=== PATIENT | female | born 1985 | race Caucasian/White ===

== ENCOUNTER 2016-04-25 11:42 | Inpatient (IN) | payer OTHER ==
[~2016-04-25] VITALS: Ht 167.6 cm; Wt 87.5 kg
[~2016-04-25 11:42] MED LIST: ACETAMINOP160 MG/51 GT; ADULT MUCU100 MG/5 M GT; ALBUTEROL SULFATE IH; ARTIFICIAL TEAR15 M4 BOTH EYES; ARTIFICIAL TEARS BOTH EYES; ATARAX2 MG/ML GT; Ascorbic Acid,Ester- PO; Atarax GT; Atarax,Vistaril GT; Augmentin GT; BISOPROLOL FUMAR5 M1 GT; CARAFATE100 MG/ML GT; CARDIZEM SR60 MG GT; CARDIZEM30 MG G; CARDIZEM60 MG GT; CARDIZEM90 M1 GT; CARDIZEM90 M1 PO; CIPRO750 MG GT; COLISTIN; Carafate GT; DELTASONE10 MG GT; DELTASONE20 MG GT; DEPAKENE250 MG/5 M G-TUBE; DEPAKENE250 MG/5 M GT; DULCOLAX10 MG PR; DUONEB 2.5-0.5 M3 ML IH; DUONEB3 ML IH; Depakene GT; Diflucan GT; Dulcolax PR; ENEMA READY TO135 M1 PR; FAMOTIDINE20 MG GT; FLAGYL500 MG GT; FLEET ENEMA-AD118 ML PR; FLEET MINERAL133 ML PR; FLORANEX CHE1 TABLET G; FLORANEX CHE1 TABLET GT; GLUCAGEN1 MG IM/SC; HEPARIN SO5000 UNIT1 SC; HYDROXYZINE HCL25 M1 GT; HYDROXYZINE HCL50 MG GT; Heparin Sodium SQ; IPRATROPIU0.2 MG/1 M IH; LASIX20 MG GT; LOVENOX40 MG/0.4 SC; Lotrimin Cream TP; Lovenox SC; MILK OF MAG GT; MILK OF MAGN PO; MUCOMYST 20200 MG/ML PO; MULTIVITAMIN GT; MULTIVITAMIN1 EAC2 GT; Maxipime IV; Milk Of Magnesia,MOM G; Milk Of Magnesia,MOM GT; Mucomyst,Mucosol 20% IH; Mycostatin,Nystop Po TP; NEBCIN40 MG/ML IV; NOVOLOG PE100 UNITS/ SC; PAIN RELIE500 MG/15 GT; PHILLIPS'400 MG/5 M PO; POTASSIUM20 MEQ/11; POTASSIUM20 MEQ/11 GT; PREDNISONE1 MG/ML GT; PREDNISONE10 M2 G-TUBE; PREVACID SOLUTA30 M1 GT; PRILOSEC20 MG GT; PROVENTIL,2.5 MG/0.5 IH; PROVENTIL,2.5 MG/3 M IH; PULMICORT0.5 MG/21 IH; PULMOCARE1000 ML GT; Peridex PO; PriLOSEC G; Prilosec PO; Proventil,Ventolin 0 IH; Robitussin, Organidi G; Robitussin, Organidi GT; SINGULAIR10 MG GT; Silvadene,SSD,Therma TP; Singulair GT; THEOPHYLLI80 MG/15 M GT; THERAGRAN1 TABLET PO; TUSSIN100 MG/5 M GT; TYGACIL50 MG IV; TYLENOL; TYLENOL650 MG GT; TYLENOL650 MG/20. GT; Tears Renewed,Artifi BOTH EYES; Tylenol Arthritis Ex GT; Tylenol G; Tylenol GT; Tylenol PR; VALPROIC A250 MG/5 M G-TUBE; VALPROIC A250 MG/5 M GT; VENTOLIN5 MG/1 ML IH; VITAMIN C + RO500 MG GT; VITAMIN C100 MG/1 M GT; VITAMIN C500 M2 GT; Vancocin Oral Soluti GT; ZINC SULFATE220 M1 GT; ZINC SULFATE220 MG GT; Zebeta GT; Zinc Sulfate GT; [UNRECOGNIZED DRUG - REMARK] IV; predniSONE GT; predniSONE PO
[2016-04-25 12:39] LABS: BASOPHIL COUNT 0.1 K/uL (0-0.1); EOSINOPHIL (%) 0.1 % (0-5); HEMATOCRIT 45.4 % (36.0-46.0); IMMATURE GRANULOCYTE (%) 0.6 % (0.0-0.7); IMMATURE GRANULOCYTE COUNT 1.7 K/uL; LYMPHOCYTE COUNT 1.4 K/uL (1.0-2.8); MCH 31.7 PG (29.0-34.0); MCHC 33.3 G/DL (30.0-36.0); MCV 95.4 FL (83-99); MONOCYTE (%) 11.1 % (3-12); MONOCYTE COUNT 3.4 K/uL (0-0.8); NEUTROPHIL (%) 83.5 % (45-76); NEUTROPHIL COUNT 25.7 K/uL (1.8-6.4); PLATELET COUNT 403 K/uL (156-360); RBC DIS.WIDTH-SD 46.1 % (39-53); RED BLOOD COUNT 4.76 M/uL (3.80-5.20); WHITE BLOOD COUNT 30.8 K/uL (4.1-10.2)
[2016-04-25 13:34] LABS: HEMATOLOGY COMMENT 1 SMEAR COMPATIBLE; USER ID CL
[2016-04-25 13:44] LABS: BASE EXCESS -2.9 mEq/L (-3 to +3); BICARBONATE 22.6 mEq/L (22-26); CARBOXY HGB 2.1 % (0-5); METHEMOGLOBIN 1.3 % (0-1.5); PO2 97 mm Hg (80-100); pH 7.35 (7.35-7.45)
[2016-04-25 13:45] LABS: COMMENTS - BLOOD GASES A+C+; DEVICE TP; FI02 100 %; PCO2 41 mm Hg (35-45); SITE RP; TOTAL RESP RATE 35 resp/min
[2016-04-25 13:49] LABS: O2 FLOW 10 L/MIN
[2016-04-25 14:15] LABS: CHLORIDE 108 mEq/L (99-109); POTASSIUM 4.7 mEq/L (3.7-5.4)
[2016-04-25 14:16] LABS: SODIUM 138 mEq/L (136-147)
[2016-04-25 14:17] LABS: GLUCOSE 123 mg/dL (70-99); INTER. NORMALIZED RATIO 1.1; PROTHROMBIN TIME 10.9 (9.2-11.2)
[2016-04-25 14:19] LABS: ANION GAP 13 MEQ/L (2-14)
[2016-04-25 14:21] LABS: GFR ESTIMATE (CALCULATED) > 59 mL/min/
[2016-04-25 14:22] LABS: UREA NITROGEN (BUN) 12 mg/dL (9-23)
[2016-04-25] MEDS ORDERED: LASIX20 MG GT (15:03)
[2016-04-25] MEDS ORDERED: DEPAKENE250 MG/5 M GT (15:06)
[2016-04-25] MEDS ORDERED: FLEET MINERAL133 ML PR (15:10)
[2016-04-25] MEDS ORDERED: MILK OF MAGN PO (15:11)
[2016-04-25 21:00] VITALS: BP 113/56
[2016-04-25 23:17] LABS: METH RESISTANT S AUREUS PCR NEGATIVE (NEGATIVE)
[2016-04-25 23:18] LABS: PROBE CHECK PASS; SPECIMEN PROCESSING CONTROL PASS
[2016-04-25 23:54] LABS: INFLUENZA A VIRAL ANTIGEN NEGATIVE; INFLUENZA B VIRAL ANTIGEN NEGATIVE
[2016-04-25 23:55] VITALS: BP 105/62
[2016-04-26 04:00] VITALS: BP 115/56
[2016-04-26 07:36] VITALS: BP 101/50
[2016-04-26 08:11] LABS: ANION GAP 8 MEQ/L (2-14); CHLORIDE 111 MEQ/L (99-109); EOSINOPHIL (%) 0 % (0-5); GFR ESTIMATE (CALCULATED) > 59 mL/min/; GLUCOSE 175 mg/dL (70-99); HEMATOCRIT 35.8 % (36.0-46.0); IMMATURE GRANULOCYTE (%) 0.4 % (0.0-0.7); LYMPHOCYTE COUNT 0.7 K/uL (1.0-2.8); MCHC 31.8 G/DL (30.0-36.0); MCV 97.3 FL (83-99); MEAN PLAT.VOLUME 10.5 uM^3 (9.5-12.4); MONOCYTE (%) 1.1 % (3-12); MONOCYTE COUNT 0.1 K/uL (0-0.8); NEUTROPHIL (%) 90.4 % (45-76); NEUTROPHIL COUNT 7.5 K/uL (1.8-6.4); POTASSIUM 4.4 MEQ/L (3.7-5.4); RBC DIS.WIDTH-CV 13.9 % (11.8-14.6); RBC DIS.WIDTH-SD 49.5 % (39-53); SAMPLE HEMOLYSIS CHECK 0; SAMPLE ICTERIC CHECK 0; SAMPLE LIPEMIA CHECK 0; SODIUM 141 MEQ/L (136-147); UREA NITROGEN (BUN) 10 mg/dL (9-23)
[2016-04-26 08:12] LABS: PLATELET COUNT 193 K/uL (156-360); RED BLOOD COUNT 3.68 M/uL (3.80-5.20); WHITE BLOOD COUNT 8.2 K/uL (4.1-10.2)
[2016-04-26 09:13] LABS: PLAT.SUFFICIENCY ADEQUATE; USER ID MCB
[2016-04-26 11:29] VITALS: BP 100/59
[2016-04-26 15:48] VITALS: BP 121/66
[2016-04-26 20:13] VITALS: BP 121/59
[2016-04-27] VITALS: BP 104/62
[2016-04-27 04:22] VITALS: BP 113/64
[2016-04-27 12:04] VITALS: BP 113/77
[2016-04-27 16:12] VITALS: BP 133/72
[2016-04-27 19:10] VITALS: BP 135/80
[2016-04-28] VITALS (7 sets, daily range): BP systolic 110–152; BP diastolic 53–70
[2016-04-29 04:46] VITALS: BP 109/58
[2016-04-29 08:11] VITALS: BP 120/60
[2016-04-29 11:25] VITALS: BP 114/71
[2016-04-29 16:01] VITALS: BP 117/69
[2016-04-29 19:00] VITALS: BP 119/69
[2016-04-29 23:40] VITALS: BP 122/62
[2016-04-30 01:12] LABS: CHLORIDE 103 mEq/L (99-109); POTASSIUM 3.9 mEq/L (3.7-5.4); SODIUM 142 mEq/L (136-147)
[2016-04-30 01:14] LABS: GLUCOSE 127 mg/dL (70-99)
[2016-04-30 01:15] LABS: ANION GAP 9 MEQ/L (2-14)
[2016-04-30 01:17] LABS: GFR ESTIMATE (CALCULATED) > 59 mL/min/
[2016-04-30 01:18] LABS: UREA NITROGEN (BUN) 16 mg/dL (9-23)
[2016-04-30 03:15] VITALS: BP 109/69
[2016-04-30 07:30] VITALS: BP 108/71
[2016-04-30 11:42] VITALS: BP 114/63
[2016-04-30 14:56] VITALS: BP 118/64
[2016-04-30 19:03] VITALS: BP 104/62
[2016-05-01] VITALS (7 sets, daily range): BP systolic 05–120; BP diastolic 55–74
[2016-05-02 04:15] VITALS: BP 108/79
[2016-05-02 07:50] VITALS: BP 110/63
[2016-05-02 11:33] VITALS: BP 100/69
[2016-05-02 15:44] VITALS: BP 107/56
[2016-05-02 15:53] LABS: GFR ESTIMATE (CALCULATED) > 59 mL/min/; UREA NITROGEN (BUN) 19 mg/dL (9-23)
[2016-05-02 19:25] VITALS: BP 107/75
[2016-05-03 00:15] VITALS: BP 116/70
[2016-05-03 03:15] VITALS: BP 112/69
[2016-05-03 07:19] LABS: EOSINOPHIL COUNT 0.2 K/uL (0-0.3); HEMATOCRIT 39.7 % (36.0-46.0); IMMATURE GRANULOCYTE COUNT 0.1 K/uL; LYMPHOCYTE COUNT 3.3 K/uL (1.0-2.8); MCH 31.3 PG (29.0-34.0); MCHC 31.7 G/DL (30.0-36.0); MCV 98.5 FL (83-99); MEAN PLAT.VOLUME 10.7 uM^3 (9.5-12.4); NEUTROPHIL (%) 58.3 % (45-76); NEUTROPHIL COUNT 6.6 K/uL (1.8-6.4); PLATELET COUNT 226 K/uL (156-360); RBC DIS.WIDTH-CV 14.1 % (11.8-14.6); RBC DIS.WIDTH-SD 50.5 % (39-53); RED BLOOD COUNT 4.03 M/uL (3.80-5.20)
[2016-05-03 07:25] LABS: WHITE BLOOD COUNT 11.2 K/uL (4.1-10.2)
[2016-05-03 07:26] VITALS: BP 122/64
[2016-05-03 07:27] LABS: ANION GAP 8 MEQ/L (2-14); CHLORIDE 101 MEQ/L (99-109); GFR ESTIMATE (CALCULATED) > 59 mL/min/; GLUCOSE 100 mg/dL (70-99); POTASSIUM 3.9 MEQ/L (3.7-5.4); SAMPLE HEMOLYSIS CHECK 0; SAMPLE ICTERIC CHECK 0; SAMPLE LIPEMIA CHECK 0; SODIUM 139 MEQ/L (136-147); UREA NITROGEN (BUN) 23 mg/dL (9-23)
[2016-05-03 11:45] VITALS: BP 108/58
[2016-05-03 16:17] VITALS: BP 114/66
[2016-05-03 23:49] VITALS: BP 108/62
[2016-05-04 07:25] VITALS: BP 115/68
[2016-05-04] MEDS ORDERED: PREDNISONE1 MG/ML GT (12:54)
[2016-05-04] MEDS ORDERED: Tums,OsCal GT (12:54)
[2016-05-04] MEDS ORDERED: MULTI-DELYN473 M1 GT (12:54)
[2016-05-04] MEDS ORDERED: DUONEB 2.5-0.5 M3 ML IPPB (12:55)
== END 2016-05-04 17:44 | DRG 871 ==
LOC: EME 11:42 → 4EAST 15:31 → EDOF 15:31 → 4EAST 21:07 → 2EAST 05-02 17:09
PROVIDERS: Emergency Medicine; Family Medicine Sports Medicine
DX: A41.9 Sepsis, unspecified organism (principal); J18.9 Pneumonia, unspecified organism; J96.20 Acute and chronic respiratory failure, unspecified whether with hypoxia or hypercapnia; G93.1 Anoxic brain damage, not elsewhere classified; G82.20 Paraplegia, unspecified; R40.3 Persistent vegetative state; J98.11 Atelectasis; Z93.0 Tracheostomy status; J45.909 Unspecified asthma, uncomplicated; G40.909 Epilepsy, unspecified, not intractable, without status epilepticus; Z66 Do not resuscitate; Z51.5 Encounter for palliative care; Y95 Nosocomial condition; Z22.39 Carrier of other specified bacterial diseases; Z93.1 Gastrostomy status; Z74.01 Bed confinement status
CPT/HCPCS: 36600; 71010; 76604; 80048; 80069; 80170; 80202; 81003; 82306; 82565; 82803; 83605; 84520; 85025; 85610; 87040; 87070; 87077; 87186; 87205; 87449; 87502; 87641; 93005; 94640; 94640 76; 94667; 94668; 94760; 94799; 99202; 99281; 99285; J1580; J1956; J2543; J2920; J3370; J7030; J7050; J7120; J7512

== ENCOUNTER 2016-05-24 12:07 | Inpatient (IN) | payer OTHER ==
[~2016-05-24] VITALS: Ht 165.1 cm; Wt 75.3 kg
[2016-05-24] VITALS (9 sets, daily range): BP systolic 82–117; BP diastolic 55–92
[~2016-05-24 12:07] MED LIST changes: +DUONEB 2.5-0.5 M3 ML IPPB; +MULTI-DELYN473 M1 GT; +Tums,OsCal GT
[2016-05-24 12:44] LABS: BASOPHIL COUNT 0.1 K/uL (0-0.1); EOSINOPHIL (%) 0.8 % (0-5); EOSINOPHIL COUNT 0.2 K/uL (0-0.3); HEMATOCRIT 47.6 % (36.0-46.0); IMMATURE GRANULOCYTE (%) 1.6 % (0.0-0.7); IMMATURE GRANULOCYTE COUNT 4.4 K/uL; LYMPHOCYTE COUNT 7.5 K/uL (1.0-2.8); MCH 31.2 PG (29.0-34.0); MCHC 32.8 G/DL (30.0-36.0); MCV 95.2 FL (83-99); MEAN PLAT.VOLUME 10.3 uM^3 (9.5-12.4); MONOCYTE (%) 4.3 % (3-12); MONOCYTE COUNT 1.2 K/uL (0-0.8); NEUTROPHIL (%) 65.4 % (45-76); NEUTROPHIL COUNT 17.7 K/uL (1.8-6.4); RBC DIS.WIDTH-SD 45.7 % (39-53)
[2016-05-24 12:45] LABS: PLATELET COUNT 385 K/uL (156-360); WHITE BLOOD COUNT 27.1 K/uL (4.1-10.2)
[2016-05-24 12:49] LABS: CHLORIDE 99 mEq/L (99-109); SODIUM 138 mEq/L (136-147)
[2016-05-24 12:52] LABS: PROTHROMBIN TIME 10.5 (9.2-11.2); PTT 22.3 (25-32)
[2016-05-24 12:52] LABS: GLUCOSE 292 mg/dL (70-99); POTASSIUM 5.4 mEq/L (3.7-5.4)
[2016-05-24 12:53] LABS: ANION GAP 18 MEQ/L (2-14); TOTAL BILIRUBIN 0.5 mg/dL (0.0-1.0)
[2016-05-24 12:55] LABS: ALKALINE PHOSPHATASE 103 IU/L (3-129); GFR ESTIMATE (CALCULATED) > 59 mL/min/
[2016-05-24 12:56] LABS: UREA NITROGEN (BUN) 12 mg/dL (9-23)
[2016-05-24 12:57] LABS: DIRECT BILIRUBIN 0.2 mg/dL (0.0-0.3)
[2016-05-24 12:59] LABS: LIPASE 25 U/L (1.0-51.0)
[2016-05-24 13:01] LABS: TROP-I INTERPRETATION NEGATIVE; TROPONIN-I < 0.01 ng/mL (0.0-0.30)
[2016-05-24 13:13] LABS: ADD MIUA? YES; BILIRUBIN NEGATIVE; BLOOD MODERATE; COLOR YELLOW ((YELLOW)); GLUCOSE (STRIP) 50; KETONES NEGATIVE; LEUKOCYTES SMALL; NITRITE NEGATIVE; PROTEIN (STRIP) 100; SPECIFIC GRAVITY 1.012 (1.000-1.030); UROBILINOGEN 0.2 MG/DL (0.2-1.0)
[2016-05-24 13:27] LABS: BACTERIA 1+ /HPF; EPITHELIAL CELLS 3+ /HPF; MUCUS NONE SEEN /LPF; UCUL ADDED? NO
[2016-05-24 14:08] LABS: BASE EXCESS 0.7 mEq/L (-3 to +3); BICARBONATE 26.6 mEq/L (22-26); CARBOXY HGB 1.6 % (0-5); COMMENTS - BLOOD GASES NAC+; DEVICE PB 840 VENT; FI02 100 %; MECHANICAL RATE 16 resp/min; METHEMOGLOBIN 1.2 % (0-1.5); MODE AC; PCO2 46 mm Hg (35-45); PEEP 10 CM/H20; SITE RR; TIDAL VOLUME 350 ML; TOTAL RESP RATE 33 resp/min; pH 7.37 (7.35-7.45)
[2016-05-24 17:01] LABS: INFLUENZA A VIRAL ANTIGEN NEGATIVE; INFLUENZA B VIRAL ANTIGEN NEGATIVE
[2016-05-24 18:12] LABS: METH RESISTANT S AUREUS PCR NEGATIVE (NEGATIVE); PROBE CHECK PASS; SPECIMEN PROCESSING CONTROL PASS
[2016-05-25] VITALS (16 sets, daily range): BP systolic 92–129; BP diastolic 55–77
[2016-05-25 06:14] LABS: MCH 31.1 PG (29.0-34.0); MCHC 31.9 G/DL (30.0-36.0); MCV 97.6 FL (83-99); RBC DIS.WIDTH-CV 14.2 % (11.8-14.6); RBC DIS.WIDTH-SD 50.5 % (39-53)
[2016-05-25 06:15] LABS: RED BLOOD COUNT 3.28 M/uL (3.80-5.20); WHITE BLOOD COUNT 8.3 K/uL (4.1-10.2)
[2016-05-25 06:25] LABS: INTER. NORMALIZED RATIO 1.2
[2016-05-25 06:40] LABS: ANION GAP 6 MEQ/L (2-14); GFR ESTIMATE (CALCULATED) > 59 mL/min/; SAMPLE HEMOLYSIS CHECK 0; SAMPLE ICTERIC CHECK 0; SAMPLE LIPEMIA CHECK 0; SODIUM 143 MEQ/L (136-147); UREA NITROGEN (BUN) 12 mg/dL (9-23)
[2016-05-25 06:44] LABS: CHLORIDE 110 MEQ/L (99-109); GLUCOSE 78 mg/dL (70-99); POTASSIUM 3.9 MEQ/L (3.7-5.4)
[2016-05-25 07:22] LABS: PLATELET COUNT UNABLE TO REPORT K/uL (156-360)
[2016-05-25] MEDS ORDERED: ONE DAILY WOME1 EACH GT (18:49)
[2016-05-25] MEDS ORDERED: MULTI-DELYN473 M1 GT (18:50)
[2016-05-25] MEDS ORDERED: POTASSIUM20 MEQ/11 GT (18:51)
[2016-05-25] MEDS ORDERED: PREDNISONE1 MG/ML PO (18:52)
[2016-05-25] MEDS ORDERED: TUMS500 MG GT (18:55)
[2016-05-25] MEDS ORDERED: FLEET MINERAL133 ML PR (19:10)
[2016-05-25] MEDS ORDERED: MILK OF MAGN PO (19:12)
[2016-05-26] VITALS (15 sets, daily range): BP systolic 99–135; BP diastolic 50–79
[2016-05-27] VITALS (9 sets, daily range): BP systolic 102–135; BP diastolic 54–78
[2016-05-28] VITALS (11 sets, daily range): BP systolic 104–129; BP diastolic 56–70
[2016-05-28 03:29] LABS: EOSINOPHIL (%) 1.3 % (0-5); EOSINOPHIL COUNT 0.1 K/uL (0-0.3); HEMATOCRIT 34.8 % (36.0-46.0); IMMATURE GRANULOCYTE (%) 1.6 % (0.0-0.7); IMMATURE GRANULOCYTE COUNT 0.7 K/uL; LYMPHOCYTE COUNT 0.7 K/uL (1.0-2.8); MCH 30.9 PG (29.0-34.0); MCHC 32.8 G/DL (30.0-36.0); MCV 94.3 FL (83-99); MONOCYTE (%) 2.2 % (3-12); MONOCYTE COUNT 0.1 K/uL (0-0.8); NEUTROPHIL (%) 79.1 % (45-76); NEUTROPHIL COUNT 3.5 K/uL (1.8-6.4); RBC DIS.WIDTH-CV 13.3 % (11.8-14.6); RBC DIS.WIDTH-SD 44.1 % (39-53); RED BLOOD COUNT 3.69 M/uL (3.80-5.20)
[2016-05-28 03:37] LABS: GFR ESTIMATE (CALCULATED) > 59 mL/min/
[2016-05-28 03:38] LABS: UREA NITROGEN (BUN) 5 mg/dL (9-23)
[2016-05-28 03:44] LABS: WHITE BLOOD COUNT 4.5 K/uL (4.1-10.2)
[2016-05-28 03:52] LABS: POTASSIUM 3.3 mEq/L (3.7-5.4); SODIUM 146 mEq/L (136-147)
[2016-05-28 03:53] LABS: CHLORIDE 111 mEq/L (99-109)
[2016-05-28 03:55] LABS: ANION GAP 12 MEQ/L (2-14); GLUCOSE 119 mg/dL (70-99)
[2016-05-28 03:58] LABS: GFR ESTIMATE (CALCULATED) > 59 mL/min/
[2016-05-28 03:59] LABS: UREA NITROGEN (BUN) 5 mg/dL (9-23)
[2016-05-28 06:52] LABS: HEMATOLOGY COMMENT 1 SMEAR COMPATIBLE; PLAT.SUFFICIENCY ADEQUATE; USER ID STC
[2016-05-28 06:54] LABS: PLATELET COUNT 190 K/uL (156-360)
[2016-05-28 20:37] LABS: BASE EXCESS 2.7 mEq/L (-3 to +3); BICARBONATE 25.9 mEq/L (22-26); CARBOXY HGB 1.9 % (0-5); METHEMOGLOBIN 1.7 % (0-1.5); PO2 50 mm Hg (80-100)
[2016-05-28 20:38] LABS: COMMENTS - BLOOD GASES A+C+; DEVICE TP; FI02 30 %; PCO2 34 mm Hg (35-45); SITE RR; pH 7.49 (7.35-7.45)
[2016-05-29] VITALS (9 sets, daily range): BP systolic 109–151; BP diastolic 58–77
[2016-05-29 06:32] LABS: EOSINOPHIL (%) 0 % (0-5); IMMATURE GRANULOCYTE (%) 1.8 % (0.0-0.7); IMMATURE GRANULOCYTE COUNT 0.1 K/uL; LYMPHOCYTE COUNT 1.4 K/uL (1.0-2.8); MCH 29.4 PG (29.0-34.0); MCHC 31.2 G/DL (30.0-36.0); MCV 94.2 FL (83-99); MEAN PLAT.VOLUME 10.9 uM^3 (9.5-12.4); MONOCYTE (%) 8.8 % (3-12); MONOCYTE COUNT 0.6 K/uL (0-0.8); NEUTROPHIL (%) 68.4 % (45-76); NEUTROPHIL COUNT 4.7 K/uL (1.8-6.4); PLATELET COUNT 219 K/uL (156-360); RBC DIS.WIDTH-CV 13.5 % (11.8-14.6); RBC DIS.WIDTH-SD 46.8 % (39-53); RED BLOOD COUNT 3.61 M/uL (3.80-5.20); WHITE BLOOD COUNT 6.9 K/uL (4.1-10.2)
[2016-05-29 06:52] LABS: ANION GAP 9 MEQ/L (2-14); CHLORIDE 110 MEQ/L (99-109); GFR ESTIMATE (CALCULATED) > 59 mL/min/; GLUCOSE 124 mg/dL (70-99); SAMPLE HEMOLYSIS CHECK 0; SAMPLE ICTERIC CHECK 0; SAMPLE LIPEMIA CHECK 0; SODIUM 144 MEQ/L (136-147); UREA NITROGEN (BUN) 10 mg/dL (9-23)
[2016-05-29 07:15] LABS: POTASSIUM 4.2 MEQ/L (3.7-5.4)
[2016-05-30] VITALS (7 sets, daily range): BP systolic 115–136; BP diastolic 65–84
[2016-05-30 06:28] LABS: ANION GAP 8 MEQ/L (2-14); CHLORIDE 106 MEQ/L (99-109); GFR ESTIMATE (CALCULATED) > 59 mL/min/; GLUCOSE 104 mg/dL (70-99); POTASSIUM 4.4 MEQ/L (3.7-5.4); SAMPLE HEMOLYSIS CHECK 0; SAMPLE ICTERIC CHECK 0; SAMPLE LIPEMIA CHECK 0; SODIUM 141 MEQ/L (136-147); UREA NITROGEN (BUN) 10 mg/dL (9-23)
[2016-05-31 04:14] VITALS: BP 111/73
[2016-05-31 07:36] VITALS: BP 124/76
[2016-05-31 11:28] VITALS: BP 110/60
[2016-05-31 19:37] VITALS: BP 100/66
[2016-05-31 23:23] VITALS: BP 107/71
[2016-06-01 03:51] VITALS: BP 117/72
[2016-06-01 08:14] VITALS: BP 117/78
[2016-06-01 11:47] VITALS: BP 110/70
[2016-06-01] MEDS ORDERED: CEFEPIME HCL1 GM IM (12:47)
[2016-06-01 15:25] VITALS: BP 95/56
[2016-06-01 19:20] VITALS: BP 107/67
[2016-06-02 00:11] VITALS: BP 107/56
[2016-06-02 04:08] VITALS: BP 129/17
[2016-06-02 07:40] VITALS: BP 112/71
[2016-06-02 11:43] VITALS: BP 118/67
[2016-06-02 16:35] VITALS: BP 100/59
== END 2016-06-02 17:54 | DRG 871 ==
LOC: EME → EDBD 12:07 → EDOF 15:11 → 4WEST 15:11 → 5EAST 05-30 19:21
PROVIDERS: Family Medicine Sports Medicine; Internal Medicine Critical Care Medicine; Physician Assistant Medical
PROC: 5A1945Z Respiratory Ventilation, 24-96 Consecutive Hours (ICD-10-PCS; principal; 2016-05-24)
PROC: 06HM33Z Insertion of Infusion Device into Right Femoral Vein, Percutaneous Approach (ICD-10-PCS; principal; 2016-05-24)
PROC: 02HV33Z Insertion of Infusion Device into Superior Vena Cava, Percutaneous Approach (ICD-10-PCS; 2016-05-25)
DX: A41.9 Sepsis, unspecified organism (principal); J18.9 Pneumonia, unspecified organism; J96.91 Respiratory failure, unspecified with hypoxia; G82.20 Paraplegia, unspecified; G93.1 Anoxic brain damage, not elsewhere classified; B96.5 Pseudomonas (aeruginosa) (mallei) (pseudomallei) as the cause of diseases classified elsewhere; J45.909 Unspecified asthma, uncomplicated; R65.21 Severe sepsis with septic shock; Z93.0 Tracheostomy status; R40.3 Persistent vegetative state; Z93.1 Gastrostomy status; Z99.11 Dependence on respirator [ventilator] status; R56.9 Unspecified convulsions
CPT/HCPCS: 36600; 71010; 80048; 80053; 80164; 80202; 81003; 82248; 82565; 82803; 83605; 83690; 84439; 84443; 84484; 84520; 85025; 85027; 85610; 85730; 87040; 87070; 87077; 87186; 87205; 87502; 87641; 87801; 93005; 94002; 94003; 94640; 94640 76; 94799; 99202; 99281; 99285; C1752; J0692; J0696; J1650; J1956; J2930; J3370; J3480; J7030; J7050; J7512; S0028

== ENCOUNTER 2016-08-04 23:58 | Inpatient (IN) | payer OTHER ==
[~2016-08-04] VITALS: Ht 162.6 cm; Wt 71.9 kg
[~2016-08-04 23:58] MED LIST changes: +CEFEPIME HCL1 GM IM; +ONE DAILY WOME1 EACH GT; +PREDNISONE1 MG/ML PO; +TUMS500 MG GT
[2016-08-05 00:33] LABS: MCH 30.6 PG (29.0-34.0); MCHC 32.1 G/DL (30.0-36.0); MCV 95.3 FL (83-99); PLATELET COUNT 283 K/uL (156-360); RBC DIS.WIDTH-SD 49.5 % (39-53); RED BLOOD COUNT 4.51 M/uL (3.80-5.20); WHITE BLOOD COUNT 19.2 K/uL (4.1-10.2)
[2016-08-05 00:43] LABS: INTER. NORMALIZED RATIO 1.1; PROTHROMBIN TIME 10.7 (9.2-11.2); PTT 26.8 (25-32)
[2016-08-05 00:47] LABS: CHLORIDE 100 mEq/L (99-109); POTASSIUM 3.7 mEq/L (3.7-5.4); SODIUM 139 mEq/L (136-147)
[2016-08-05 00:50] LABS: GLUCOSE 115 mg/dL (70-99)
[2016-08-05 00:51] LABS: ANION GAP 11 MEQ/L (2-14)
[2016-08-05 00:52] LABS: TOTAL BILIRUBIN 0.5 mg/dL (0.0-1.0)
[2016-08-05 00:53] LABS: ALKALINE PHOSPHATASE 80 IU/L (3-129); GFR ESTIMATE (CALCULATED) > 59 mL/min/
[2016-08-05 00:54] LABS: UREA NITROGEN (BUN) 13 mg/dL (9-23)
[2016-08-05 00:57] LABS: LIPASE 28 U/L (1.0-51.0); TROP-I INTERPRETATION NEGATIVE; TROPONIN-I < 0.01 ng/mL (0.0-0.30)
[2016-08-05 01:19] LABS: BASE EXCESS 2.3 mEq/L (-3 to +3); BICARBONATE 28.3 mEq/L (22-26); CARBOXY HGB 2.4 % (0-5); COMMENTS - BLOOD GASES C+NA; DEVICE 980 VENT; FI02 40 %; MODE SPONT; PCO2 49 mm Hg (35-45); PEEP 8 CM/H20; PO2 94 mm Hg (80-100); PRES. SUPPORT 10 CM/H2O; SITE RR; TOTAL RESP RATE 16 resp/min; pH 7.37 (7.35-7.45)
[2016-08-05 01:23] LABS: ADD MIUA? YES; BILIRUBIN NEGATIVE; BLOOD NEGATIVE; COLOR AMBER ((YELLOW)); GLUCOSE (STRIP) NEGATIVE; KETONES 5; LEUKOCYTES LARGE; NITRITE NEGATIVE; PROTEIN (STRIP) 100; SPECIFIC GRAVITY 1.026 (1.000-1.030); UROBILINOGEN 0.2 MG/DL (0.2-1.0)
[2016-08-05 01:36] LABS: BACTERIA 3+ /HPF; EPITHELIAL CELLS NONE SEEN /HPF; MUCUS 1+ /LPF; UCUL ADDED? YES; WHITE BLOOD CELLS TNTC /HPF (0-5); WHITE BLOOD CELLS CLUMP MANY /HPF (0-5)
[2016-08-05 02:01] LABS: BASE EXCESS -3.9 mEq/L (-3 to +3); BICARBONATE 25.4 mEq/L (22-26); CARBOXY HGB 1.2 % (0-5); METHEMOGLOBIN 1.2 % (0-1.5)
[2016-08-05 02:30] VITALS: BP 123/80
[2016-08-05 02:49] LABS: PCO2 65 mm Hg (35-45); PO2 455 mm Hg (80-100); SITE RR
[2016-08-05 02:50] LABS: COMMENTS - BLOOD GASES C+NA; DEVICE AMBU; O2 FLOW 15 L/MIN; TOTAL RESP RATE 12 resp/min
[2016-08-05 03:00] VITALS: BP 123/80
[2016-08-05 03:28] LABS: BASE EXCESS 0.1 mEq/L (-3 to +3); BICARBONATE 31.7 mEq/L (22-26); CARBOXY HGB 1.8 % (0-5); COMMENTS - BLOOD GASES C+; DEVICE VENT; FI02 100 %; MECHANICAL RATE 14 resp/min; METHEMOGLOBIN 2.3 % (0-1.5); MODE AC; PCO2 93 mm Hg (35-45); PO2 364 mm Hg (80-100); SITE RIGHT PEDAL; TOTAL RESP RATE 14 resp/min; pH 7.14 (7.35-7.45)
[2016-08-05 03:29] LABS: PEEP 5 CM/H20; TIDAL VOLUME 300 ML
[2016-08-05 03:30] VITALS: BP 118/77
[2016-08-05 04:00] VITALS: BP 114/79
[2016-08-05 04:03] LABS: METH RESISTANT S AUREUS PCR NEGATIVE (NEGATIVE)
[2016-08-05 04:06] LABS: PROBE CHECK PASS; SPECIMEN PROCESSING CONTROL PASS
[2016-08-05 05:00] VITALS: BP 127/87
[2016-08-05 05:30] VITALS: BP 0/0
== END 2016-08-05 10:20 | DRG 208 ==
LOC: EME → EDBD 23:58 → EME 23:58 → EDOF 08-05 02:09 → 4WEST 08-05 02:37
PROVIDERS: Emergency Medicine; Surgery Surgical Critical Care
PROC: 5A1935Z Respiratory Ventilation, Less than 24 Consecutive Hours (ICD-10-PCS; principal; 2016-08-05)
DX: J96.00 Acute respiratory failure, unspecified whether with hypoxia or hypercapnia (principal); J90 Pleural effusion, not elsewhere classified; E87.2 Acidosis; N30.90 Cystitis, unspecified without hematuria; G93.1 Anoxic brain damage, not elsewhere classified; R40.3 Persistent vegetative state; T48.4X5A Adverse effect of expectorants, initial encounter; J45.902 Unspecified asthma with status asthmaticus; K21.9 Gastro-esophageal reflux disease without esophagitis; Z93.0 Tracheostomy status; Z93.1 Gastrostomy status
CPT/HCPCS: 36600; 71010; 80053; 81003; 82803; 83605; 83690; 83880; 84484; 85027; 85610; 85730; 87040; 87070; 87077; 87086; 87186; 87205; 87641; 93005; 94002; 94640; 94644; 99281; 99285; J0171; J0696; J1100; J1200; J2250; J2543; J2930; J3010; J3370; J3475; J7030; J7050